=== PATIENT | female | born 1980 ===

== ENCOUNTER → 2024-10-12 10:42 | Outpatient (REF) | payer OTHER, SELFPAY ==
[2024-10-12 19:18] LABS: Rubella Positive
[2024-10-14 10:18] LABS: Quantiferon Mitogen minus NIL 9.93 IU/mL; Quantiferon NIL 0.07 IU/mL; Quantiferon Plus TB1 minus NIL 0.04 IU/mL (<=0.34); Quantiferon Plus TB2 minus NIL 0.03 IU/mL (<=0.34); Quantiferon TB Gold Plus Negative (Negative)
[2024-10-14 13:41] LABS: Mumps Virus IgG Positive; Rubeola (Measles) IgG Positive; Varicella Zoster IgG (VZV) Positive
== END ==
LOC: OHS 10:42
PROVIDERS: ATTENDING PHYSICIAN Nurse Practitioner Family
DX: Z23 Encounter for immunization (principal)
CPT/HCPCS: 36415; 86480; 86735; 86762; 86765; 86787